=== PATIENT | female | born 1975 | race Caucasian/White ===

== ENCOUNTER 2023-12-15 16:25 | Inpatient (IN) ==
[~2023-12-15 16:25] MED LIST: ETOMIDATE 2 MG/ML 20 ML VIAL IV ONE; ROCURONIUM BROMIDE 10 MG/ML 5 ML VIAL IV ONE
[2023-12-15] MEDS: RAPID SEQUENCE INDUCTION BAG ONE (16:44)
[2023-12-15 16:47] LABS: iSTAT Hemoglobin 14.3 g/dl (12.0-16.0); iSTAT Ionized Calcium 1.09 mmol/l (1.12-1.32)
[2023-12-15] MEDS: propofoL 1,000 MG/100 ML VIAL IV SCH (16:49)
[2023-12-15 16:57] LABS: Appearance Urine Clear (Clear); Bilirubin Urine Negative (Negative); Blood Urine Negative (Negative); Color Urine Yellow; Glucose Urine UA Negative (Negative); Ketones Urine Negative (Negative); Leukocyte Esterase Urine Negative (Negative); Nitrite Urine Negative (Negative); Protein Urine Negative (Negative); Specific Gravity Urine 1.004 (1.000-1.030); Urobilinogen Urine Negative (Negative)
--- NOTE | 2023-12-15 16:59 | Emergency Department Note ---
Impression & Plan AMS (altered mental status), Alcohol intoxication, Respiratory failure ED Provider Note Provider: Jose Alonzo MD DATE OF SERVICE: 12/15/2023 CHIEF COMPLAINT: Overdose/altered mental status HISTORY OF PRESENT ILLNESS: Patient is a 48-year-old female reported history of anxiety presents with EMS for possible overdose and altered mental status. Patient was being assisted by filori who knocked on the ambulance alongside the road leaving the football game today needing assistance and was brought here as she is altered. Patient reportedly had some alcohol earlier and then took an unknown substance and has been altered. Patient nonverbal upon arrival with minimal belly breathing not responsive to painful stimuli. No history available from her. No obvious signs of trauma on quick exam or by EMS report. Additional history from patient's fianc after initial stabilization reports that patient did have 3-4 beers today but has a fairly good alcohol tolerance. He reports that she started to act a bit off around half-time and later told him that some other gentleman gave her a tablet of medication that she took around then that would make her fianc happy. He reports he is never seen her like this before. He has a sister and denies that he she has fallen. No other significant medical history besides anxiety related from the fianc. PAST MEDICAL HISTORY: As noted above MEDICATIONS: Reviewed home medications SOCIAL HISTORY: Did have alcohol today, has fianc who is present PHYSICAL EXAM: GENERAL: Unresponsive to verbal or painful stimuli on stretcher. Head: normocephalic and atraumatic EYES: Mild bilateral conjunctival injection without discharge or icterus. Pupils 6 mm bilaterally dilated. NECK: Trachea midline. Supple. ENT: Mucous membranes pink and moist. Pharynx without erythema or exudate. LUNGS: Airway patent. No retractions but minimal belly breathing. Bilateral breath sounds apparent. HEART: Regular tachycardic rate and rhythm. No chest wall tenderness ABDOMEN: Soft and non-tender, without guarding or rebound. SKIN: Acyanotic, warm, dry, without rashes EXTREMITIES: Without swelling, tenderness or deformity NEUROLOGICAL: Unresponsive to painful stimuli. EK bpm sinus tachycardia without PVC or PAC. No acute ST segment elevation with a QTc of [address] flattening. CONTINUOUS CARDIAC MONITORING: was ordered and showed a heart rate of 100s-150s bpm in sinus tachycardia Patient's laboratory studies and imaging reviewed. Differential includes toxicological/alcohol/drug-related, infection, hypoglycemia, electrolyte abnormalities, cardiac sources, trauma, neurologic, as well as other pathologies. IMPRESSION/MEDICAL DECISION MAKING: Patient upon arrival in room A1 unresponsive minimally breathing. Not hypoxic tachycardic. Pupils mildly dilated. Evidently took some kind of medication earlier in addition to alcohol. Given her altered mental status for airway protection patient was intubated with etomidate 20 mg and rocuronium 80 mg. This went uneventfully without desaturations. Postintubation chest x-ray obtained without evidence of pneumothorax or pneumonia with appropriate ET tube placement. Additional history from patient's fianc and no reported trauma. Will obtain head CT given the altered mental status however. Blood work sent including toxicology studies and a UDS. Patient not hypoglycemic. Blood work here with a negative COVID and urinalysis. Negative Tylenol and aspirin levels. No severe electrolyte abnormalities with normal renal function. No significant transaminitis noted or elevated CK. Not consistent with rhabdomyolysis at this time. Lipase normal doubt hepatitis or pancreatitis. hCG negative. CBC without significant leukocytosis or anemia. Did require propofol drip for sedation shortly after intubation as well as some Versed and soft restraints. Negative aspirin and Tylenol toxicology studies. Alcohol level is elevated at 330 the rest of the basic urine drug screen without finding. Patient did require some again fentanyl Versed and seems to be moderating some but given her significant alcohol intoxication feel that keeping her intubated until this process is through would be best. Updated fianc and discussed with the hospice further care here in the ICU. DIAGNOSIS: AMS, alcohol intoxication, acute respiratory failure DISPOSITION: Hospitalist will evaluate Patient was agreeable with this plan. Critical Care I have personally spent 41 minutes of critical care time in the direct management of this patient. This includes bedside care, interpretation of diagnostic studies, and testing, discussion with consultants, patient, and family members, and other required patient management activities. These 41 minutes is in excess of all separately billable procedures. ED Intubation performed by myself Indication airway protection, altered mental status. The patient was on 100% oxygen via NRB prior to the procedure. Suction, airway equipment, RSI drugs, respiratory equipment, and appropriate personnel were prepared prior to the initiation of the procedure. A time out was taken. Induction was performed with etomidate and rocuronium. After observing the clinical benefit of the medications, the airway was easily visualized utilizing a 3 glide scope. A 7.0 size ETT tube was placed atraumatically to 23 cm using standard technique. The cuff inflated without signs of malfunction. There were bilateral breath sounds, positive colormetric change, no gastric sounds, a good capnography waveform, and post procedure pulse oximetry was 100%. Post intubation sedation and paralysis was administered using propofol drip. There were no complications. 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 Beliefs That Will Affect Care: None Current Living Situation: Significant Other Assistive Devices: None Allergies Allergies Allergy/AdvReac Type Severity Reaction Status Date / Time No Known Allergies Allergy Unverified 12/15/23 18:06 Results & Data (ED) Vital Signs Vital Signs - 24 hr 12/15/23 16:26 12/15/23 16:33 12/15/23 16:41 Pulse Rate 138 H 114 H Pulse Rate [Right Finger] Pulse Rhythm [Right Finger] Respiratory Rate 6 L Respiratory Effort / Characteristics Respiratory Pattern Agonal Blood Pressure 123/93 Blood Pressure [Right Arm] Blood Pressure Mean 103 Blood Pressure Mean [Right Arm] Blood Pressure Position [Right Arm] Pulse Oximetry 100 100 Oxygen Delivery Method Ambu-Bag Oxygen Flow Rate Fraction of Inspired Oxygen SaO2/FiO2 Ratio Sepsis New/Unexplained Change in Mental Status Yes Sepsis Action Taken by Nursing No Action Required End-Tidal CO2 End Tidal CO2 (18-54mmHg) 12/15/23 16:45 12/15/23 16:52 12/15/23 16:55 Pulse Rate 101 H Pulse Rate [Right Finger] 97 H 102 H Pulse Rhythm [Right Finger] Respiratory Rate 16 16 16 Respiratory Effort / Characteristics Respiratory Pattern Blood Pressure Blood Pressure [Right Arm] 141/99 H 139/100 Blood Pressure Mean Blood Pressure Mean [Right Arm] 113 113 Blood Pressure Position [Right Arm] Pulse Oximetry 99 99 98 Oxygen Delivery Method Mechanical Vent Mechanical Vent Oxygen Flow Rate 16 Fraction of Inspired Oxygen 40 40 SaO2/FiO2 Ratio 247 Sepsis New/Unexplained Change in Mental Status Sepsis Action Taken by Nursing End-Tidal CO2 42 End Tidal CO2 (18-54mmHg) 47 12/15/23 17:26 12/15/23 17:30 12/15/23 17:39 Pulse Rate Pulse Rate [Right Finger] 120 H 106 H 107 H Pulse Rhythm [Right Finger] Respiratory Rate 12 21 17 Respiratory Effort / Characteristics Mechanically Ventilated Respiratory Pattern Blood Pressure Blood Pressure [Right Arm] 113/94 125/94 125/86 Blood Pressure Mean Blood Pressure Mean [Right Arm] 100 104 99 Blood Pressure Position [Right Arm] Pulse Oximetry 95 99 97 Oxygen Delivery Method Mechanical Vent Mechanical Vent Mechanical Vent Oxygen Flow Rate 20 Fraction of Inspired Oxygen 40 40 40 SaO2/FiO2 Ratio 237 247 242 Sepsis New/Unexplained Change in Mental Status Sepsis Action Taken by Nursing End-Tidal CO2 End Tidal CO2 (18-54mmHg) 59 52 49 12/15/23 17:46 12/15/23 17:48 12/15/23 17:52 Pulse Rate Pulse Rate [Right Finger] 106 H 102 H 110 H Pulse Rhythm [Right Finger] Respiratory Rate 18 21 18 Respiratory Effort / Characteristics Mechanically Ventilated Mechanically Ventilated Mechanically Ventilated Respiratory Pattern Blood Pressure Blood Pressure [Right Arm] 120/91 120/91 134/90 Blood Pressure Mean Blood Pressure Mean [Right Arm] 100 100 104 Blood Pressure Position [Right Arm] Pulse Oximetry 100 100 97 Oxygen Delivery Method Mechanical Vent Mechanical Vent Mechanical Vent Oxygen Flow Rate Fraction of Inspired Oxygen 40 40 40 SaO2/FiO2 Ratio 250 250 242 Sepsis New/Unexplained Change in Mental Status Sepsis Action Taken by Nursing End-Tidal CO2 End Tidal CO2 (18-54mmHg) 51 49 53 12/15/23 17:57 12/15/23 17:59 12/15/23 18:00 Pulse Rate Pulse Rate [Right Finger] 104 H 100 H Pulse Rhythm [Right Finger] Respiratory Rate 17 20 22 Respiratory Effort / Characteristics Mechanically Ventilated Respiratory Pattern Blood Pressure Blood Pressure [Right Arm] 128/75 128/75 Blood Pressure Mean Blood Pressure Mean [Right Arm] 92 92 Blood Pressure Position [Right Arm] Pulse Oximetry 95 100 Oxygen Delivery Method Mechanical Vent Mechanical Vent Oxygen Flow Rate Fraction of Inspired Oxygen 40 40 40 SaO2/FiO2 Ratio 237 250 Sepsis New/Unexplained Change in Mental Status Sepsis Action Taken by Nursing End-Tidal CO2 End Tidal CO2 (18-54mmHg) 52 49 12/15/23 18:04 12/15/23 18:08 12/15/23 18:12 Pulse Rate Pulse Rate [Right Finger] 102 H 85 82 Pulse Rhythm [Right Finger] Respiratory Rate 23 20 20 Respiratory Effort / Characteristics Mechanically Ventilated Respiratory Pattern Blood Pressure Blood Pressure [Right Arm] 107/88 113/71 100/66 Blood Pressure Mean Blood Pressure Mean [Right Arm] 94 85 77 Blood Pressure Position [Right Arm] Pulse Oximetry 100 100 99 Oxygen Delivery Method Mechanical Vent Mechanical Vent Mechanical Vent Oxygen Flow Rate Fraction of Inspired Oxygen 40 40 40 SaO2/FiO2 Ratio 250 250 247 Sepsis New/Unexplained Change in Mental Status Sepsis Action Taken by Nursing End-Tidal CO2 End Tidal CO2 (18-54mmHg) 49 47 46 12/15/23 18:15 12/15/23 18:20 12/15/23 18:25 Pulse Rate Pulse Rate [Right Finger] 80 82 80 Pulse Rhythm [Right Finger] Respiratory Rate 20 20 20 Respiratory Effort / Characteristics Mechanically Ventilated Mechanically Ventilated Respiratory Pattern Blood Pressure Blood Pressure [Right Arm] 93/68 L 107/68 108/69 Blood Pressure Mean Blood Pressure Mean [Right Arm] 76 81 82 Blood Pressure Position [Right Arm] Pulse Oximetry 99 100 100 Oxygen Delivery Method Mechanical Vent Mechanical Vent Mechanical Vent Oxygen Flow Rate Fraction of Inspired Oxygen 40 30 35 SaO2/FiO2 Ratio 247 333 285 Sepsis New/Unexplained Change in Mental Status Sepsis Action Taken by Nursing End-Tidal CO2 End Tidal CO2 (18-54mmHg) 45 45 44 12/15/23 18:37 12/15/23 18:41 12/15/23 18:46 Pulse Rate Pulse Rate [Right Finger] 82 90 74 Pulse Rhythm [Right Finger] Respiratory Rate 20 20 20 Respiratory Effort / Characteristics Mechanically Ventilated Mechanically Ventilated Respiratory Pattern Blood Pressure Blood Pressure [Right Arm] 124/84 129/81 109/72 Blood Pressure Mean Blood Pressure Mean [Right Arm] 97 97 84 Blood Pressure Position [Right Arm] Pulse Oximetry 100 99 Oxygen Delivery Method Mechanical Vent Mechanical Vent Mechanical Vent Oxygen Flow Rate Fraction of Inspired Oxygen 35 35 35 SaO2/FiO2 Ratio 285 282 Sepsis New/Unexplained Change in Mental Status Sepsis Action Taken by Nursing End-Tidal CO2 End Tidal CO2 (18-54mmHg) 48 48 45 12/15/23 19:18 12/15/23 19:30 12/15/23 20:00 Pulse Rate Pulse Rate [Right Finger] 82 73 74 Pulse Rhythm [Right Finger] Regular Respiratory Rate 20 20 24 Respiratory Effort / Characteristics Mechanically Ventilated Mechanically Ventilated Mechanically Ventilated Respiratory Pattern Blood Pressure Blood Pressure [Right Arm] 121/89 118/85 98/65 L Blood Pressure Mean Blood Pressure Mean [Right Arm] 99 96 76 Blood Pressure Position [Right Arm] Semi-fowlers Semi-fowlers Lying Pulse Oximetry 100 100 98 Oxygen Delivery Method Mechanical Vent Mechanical Vent Mechanical Vent Oxygen Flow Rate Fraction of Inspired Oxygen 30 30 SaO2/FiO2 Ratio 333 326 Sepsis New/Unexplained Change in Mental Status Sepsis Action Taken by Nursing End-Tidal CO2 End Tidal CO2 (18-54mmHg) 44 10 Laboratory Data 12/15/23 16:30 12/15/23 16:30 Lab Results 12/15/23 12/15/23 12/15/23 Range/Units 16:30 16:35 16:48 WBC 7.30 (4.8-10.8) K/ul RBC 4.47 (4.20-5.40) M/uL Hgb 15.1 (12.0-16.0) g/dl POC Hgb 14.3 (12.0-16.0) g/dl Hct 42.9 (37.0-47.0) % POC Hct 42 (37-47) % MCV 96.0 (80.0-100.0) fL MCH 33.8 (25.0-34.0) pg MCHC 35.2 (32.0-36.0) g/dL RDW Std Deviation 41.1 (36.4-46.3) fL RDW Coeff of Nika 11.8 (11.5-14.5) % Plt Count 155 (130-400) K/uL MPV 8.9 L (9.4-12.4) fL Immature Gran % (Auto) 0.3 % Neut % (Auto) 36.3 % Lymph % (Auto) 54.7 % Appling % (Auto) 7.3 % Eos % (Auto) 0.7 % Baso % (Auto) 0.7 % Neut # (Auto) 2.66 (1.40-6.50) K/uL Lymph # (Auto) 3.99 H (1.20-3.40) K/uL Appling # (Auto) 0.53 (0.11-0.59) K/uL Eos # (Auto) 0.05 (0.00-0.50) K/uL Baso # (Auto) 0.05 (0.00-0.20) K/uL Immature Gran # (Auto) 0.02 (0.01-0.20) K/uL PT 9.8 (9.0-12.0) Seconds INR 0.9 (0.9-1.1) Specimen Type POC pH (7.35-7.45) POC pCO2 (35-46) mmHg POC pO2 (80-95) mmHg POC HCO3 (19-24) howard/L POC Base Excess (-9-1.8) howard/L POC ABG O2 Sat (90-95) % POC Sodium 142 (135-144) mmol/L Sodium 142 (136-145) mmol/L POC Potassium 4.0 (3.3-5.0) mmol/L Potassium 4.0 (3.5-5.1) mmol/L POC Chloride 107 (101-112) mmol/L Chloride 107 (98-107) mmol/L Carbon Dioxide 24 (21-32) mmol/L POC Total CO2 23 L (24-31) mmol/L Anion Gap 11 (3-11) POC Anion Gap 17.0 (16-25) mmol/L POC BUN 15 (7-18) mg/dl BUN 15 (6-23) mg/dl Creatinine 0.60 (0.6-1.2) mg/dl POC Creatinine 1.0 (0.6-1.3) mg/dl Est Cr Clr Drug Dosing Not Reportable eGFR 112.04 BUN/Creatinine Ratio 25.0 H (10-20) Glucose 78 (70-99(Fasting)) mg/dl POC Glucose (other) 84 (70-99) mg/dl Osmolality 371 H* (280-300) mOsm/kg Calcium 9.1 (8.6-10.3) mg/dl POC Ioniz Calcium Shannon 1.09 L (1.12-1.32) mmol/l Magnesium 2.4 (1.7-2.4) mg/dl Total Bilirubin 0.4 (0.2-1.0) mg/dl AST 31 (13-39) U/L ALT 31 (7-52) U/L Alkaline Phosphatase 28 L (34-104) U/L Total Creatine Kinase 157 (26-192) U/L Troponin I High Sens 2.5 (0-14) pg/ml Total Protein 8.1 (6.0-8.3) gm/dl Albumin 4.7 (3.4-5.0) gm/dl Globulin 3.4 (2.5-4.0) gm/dl Albumin/Globulin Ratio 1.4 (0.9-2) Lipase 39 (11-82) U/L HCG, Qual Negative (Negative) Urine Color Yellow Urine Appearance Clear (Clear) Urine pH 5.0 (4.5-7.5) Ur Specific Koloa 1.004 (1.000-1.030) Urine Protein Negative (Negative) Urine Glucose (UA) Negative (Negative) Urine Ketones Negative (Negative) Urine Blood Negative (Negative) Urine Nitrite Negative (Negative) Urine Bilirubin Negative (Negative) Urine Urobilinogen Negative (Negative) Ur Leukocyte Esterase Negative (Negative) Salicylates < 3.0 L (3.0-30) mg/dl Urine Opiates Screen Neg (Neg) Ur Methadone, Qual Neg (Neg) Urine Fentanyl Screen Neg (Neg) Acetaminophen < 3 L (10-30) ug/ml Urine Barbiturates Neg (Neg) Ur Phencyclidine (PCP) Neg (Neg) U Amphetamin/Meth Scrn Neg (Neg) MDMA (Ecstasy) Screen Neg (Neg) U Benzodiazepines Scrn Neg (Neg) Ur Cocaine Metabolite Neg (Neg) U Marijuana (THC) Screen Neg (Neg) Ethyl Alcohol mg/dL (<10.0) mg/dl SARS-CoV-2, RNA, NAAT NEGATIVE (NEGATIVE) 12/15/23 12/15/23 Range/Units 16:49 19:52 WBC (4.8-10.8) K/ul RBC (4.20-5.40) M/uL Hgb (12.0-16.0) g/dl POC Hgb 12.9 (12.0-16.0) g/dl Hct (37.0-47.0) % POC Hct 38 (37-47) % MCV (80.0-100.0) fL MCH (25.0-34.0) pg MCHC (32.0-36.0) g/dL RDW Std Deviation (36.4-46.3) fL RDW Coeff of Nika (11.5-14.5) % Plt Count (130-400) K/uL MPV (9.4-12.4) fL Immature Gran % (Auto) % Neut % (Auto) % Lymph % (Auto) % Appling % (Auto) % Eos % (Auto) % Baso % (Auto) % Neut # (Auto) (1.40-6.50) K/uL Lymph # (Auto) (1.20-3.40) K/uL Appling # (Auto) (0.11-0.59) K/uL Eos # (Auto) (0.00-0.50) K/uL Baso # (Auto) (0.00-0.20) K/uL Immature Gran # (Auto) (0.01-0.20) K/uL PT (9.0-12.0) Seconds INR (0.9-1.1) Specimen Type Arterial POC pH 7.27 L (7.35-7.45) POC pCO2 47 H (35-46) mmHg POC pO2 121 H (80-95) mmHg POC HCO3 22 (19-24) howard/L POC Base Excess -5.0 (-9-1.8) howard/L POC ABG O2 Sat 98.0 H (90-95) % POC Sodium 142 (135-144) mmol/L Sodium (136-145) mmol/L POC Potassium 3.9 (3.3-5.0) mmol/L Potassium (3.5-5.1) mmol/L POC Chloride (101-112) mmol/L Chloride (98-107) mmol/L Carbon Dioxide (21-32) mmol/L POC Total CO2 23 L (24-31) mmol/L Anion Gap (3-11) POC Anion Gap (16-25) mmol/L POC BUN (7-18) mg/dl BUN (6-23) mg/dl Creatinine (0.6-1.2) mg/dl POC Creatinine (0.6-1.3) mg/dl Est Cr Clr Drug Dosing eGFR BUN/Creatinine Ratio (10-20) Glucose (70-99(Fasting)) mg/dl POC Glucose (other) (70-99) mg/dl Osmolality (280-300) mOsm/kg Calcium (8.6-10.3) mg/dl POC Ioniz Calcium Shannon (1.12-1.32) mmol/l Magnesium (1.7-2.4) mg/dl Total Bilirubin (0.2-1.0) mg/dl AST (13-39) U/L ALT (7-52) U/L Alkaline Phosphatase (34-104) U/L Total Creatine Kinase (26-192) U/L Troponin I High Sens (0-14) pg/ml Total Protein (6.0-8.3) gm/dl Albumin (3.4-5.0) gm/dl Globulin (2.5-4.0) gm/dl Albumin/Globulin Ratio (0.9-2) Lipase (11-82) U/L HCG, Qual (Negative) Urine Color Urine Appearance (Clear) Urine pH (4.5-7.5) Ur Specific Koloa (1.000-1.030) Urine Protein (Negative) Urine Glucose (UA) (Negative) Urine Ketones (Negative) Urine Blood (Negative) Urine Nitrite (Negative) Urine Bilirubin (Negative) Urine Urobilinogen (Negative) Ur Leukocyte Esterase (Negative) Salicylates (3.0-30) mg/dl Urine Opiates Screen (Neg) Ur Methadone, Qual (Neg) Urine Fentanyl Screen (Neg) Acetaminophen (10-30) ug/ml Urine Barbiturates (Neg) Ur Phencyclidine (PCP) (Neg) U Amphetamin/Meth Scrn (Neg) MDMA (Ecstasy) Screen (Neg) U Benzodiazepines Scrn (Neg) Ur Cocaine Metabolite (Neg) U Marijuana (THC) Screen (Neg) Ethyl Alcohol mg/dL 330.7 H (<10.0) mg/dl SARS-CoV-2, RNA, NAAT (NEGATIVE) Administered Medications Fentanyl Citrate (Fentanyl Citrate Pf 100 Mcg/2 Ml Vial) 100 mcg IV Q15M PRN PRN Reason: Pain Stop: 12/29/23 18:37 Last Admin: 12/15/23 18:42 Dose: 100 mcg Documented By: NRB Propofol (Diprivan) 1,000 mg in 100 mls @ 20.25 mls/hr IV .Q4H57M [facility]; Protocol Stop: 12/18/23 16:44 Last Titration: 12/15/23 20:21 Dose: 45 mcg/kg/min, 20.3 mls/hr Documented By: Admin: 12/15/23 20:10 Dose: 50 mcg/kg/min, 22.5 mls/hr Documented By: RODERICK Co-signed By: LUL Titration: 12/15/23 20:10 Dose: Infused Documented By: RODERICK Co-signed By: LUL Titration: 12/15/23 17:54 Dose: 50 mcg/kg/min, 22.5 mls/hr Documented By: Titration: 12/15/23 17:40 Dose: 40 mcg/kg/min, 18 mls/hr Documented By: Titration: 12/15/23 17:17 Dose: 30 mcg/kg/min, 13.5 mls/hr Documented By: Titration: 12/15/23 17:01 Dose: 25.11 mcg/kg/min, 11.3 mls/hr Documented By: Admin: 12/15/23 16:49 Dose: 20 mcg/kg/min, 9 mls/hr Documented By: NRB Co-signed By: MICHELLE Fentanyl Citrate (Fentanyl Citrate) 2,500 mcg in 250 mls @ 2.5 mls/hr IV .Q96H [facility]; Protocol Stop: 12/29/23 21:14 Last Admin: 12/15/23 21:14 Dose: 25 mcg/hr, 2.5 mls/hr Documented By: MARV Co-signed By: SAMMY Miscellaneous (Icu Protocol For Hyperglycemia) 1 each N/A ACHS [facility] Stop: 12/17/23 21:04 Last Admin: 12/15/23 22:14 Dose: Not Given Documented By: [id number] Propofol (Propofol Bolus From Bag) 20 mg IV Q5M PRN PRN Reason: Sedation Stop: 12/18/23 16:37 Last Admin: 12/15/23 19:24 Dose: 20 mg Documented By: RODERICK Co-signed By: ROBERT Admin: 12/15/23 18:39 Dose: 20 mg Documented By: NRB Co-signed By: GABY Admin: 12/15/23 17:58 Dose: 20 mg Documented By: NRB Co-signed By: ERICK Admin: 12/15/23 17:20 Dose: 20 mg Documented By: NRB Co-signed By: EPHRAIM Admin: 12/15/23 17:12 Dose: 20 mg Documented By: NRB Co-signed By: EPHRAIM Admin: 12/15/23 17:07 Dose: 20 mg Documented By: NRB Co-signed By: EPHRAIM Admin: 12/15/23 17:02 Dose: 20 mg Documented By: KAYLAH Co-signed By: GABY Discontinued Medications Fentanyl Citrate (Fentanyl Citrate Pf 100 Mcg/2 Ml Vial) 100 mcg IV NOW STA Stop: 12/15/23 18:04 Last Admin: 12/15/23 18:05 Dose: 100 mcg Documented By: KAYLAH Fentanyl Citrate (Fentanyl Citrate Pf 100 Mcg/2 Ml Vial) 100 mcg IV NOW STA Stop: 12/15/23 19:41 Last Admin: 12/15/23 19:45 Dose: 100 mcg Documented By: RODERICK Fentanyl Citrate (Fentanyl Citrate 2,500 Mcg/250 Ml Bag) Confirm Administered Dose 2,500 mcg IV .STK-MED ONE Stop: 12/15/23 21:00 Last Admin: 12/15/23 21:19 Dose: Not Given Documented By: MARV Sodium Chloride (Nss) 1,000 mls @ 999 mls/hr IV .Q1H1M ONE Stop: 12/15/23 17:57 Last Infusion: 12/15/23 18:35 Dose: Infused Documented By: Admin: 12/15/23 17:34 Dose: 999 mls/hr Documented By: KAYLAH Midazolam HCl (Midazolam Hcl 1 Mg/Ml 2ml Vial) 2.5 mg IV NOW STA Stop: 12/15/23 17:24 Last Admin: 12/15/23 18:44 Dose: Not Given Documented By: KAYLAH Midazolam HCl (Midazolam Hcl 5 Mg/Ml 2ml Vial) Confirm Administered Dose 10 mg .ROUTE .STK-MED ONE Stop: 12/15/23 17:25 Last Increment: 12/15/23 17:33 Dose: 2.5 mg Documented By: KAYLAH Increment: 12/15/23 17:26 Dose: 2.5 mg Documented By: KAYLAH Midazolam HCl (Midazolam Hcl 1 Mg/Ml 2ml Vial) 2.5 mg IV NOW STA Stop: 12/15/23 17:34 Last Admin: 12/15/23 18:44 Dose: Not Given Documented By: KAYLAH Midazolam HCl (Midazolam Hcl 5 Mg/Ml 1 Ml Vial) 5 mg IV NOW STA Stop: 12/15/23 17:40 Last Admin: 12/15/23 17:45 Dose: 5 mg Documented By: KAYLAH Midazolam HCl (Midazolam Hcl 5 Mg/Ml 2ml Vial) Confirm Administered Dose 10 mg .ROUTE .STK-MED ONE Stop: 12/15/23 17:50 Last Admin: 12/15/23 18:59 Dose: 1 mg Documented By: KAYLAH Midazolam HCl (Midazolam Hcl 5 Mg/Ml 1 Ml Vial) 5 mg IV NOW STA Stop: 12/15/23 19:41 Last Admin: 12/15/23 21:11 Dose: Not Given Documented By: RODERICK Midazolam HCl (Midazolam Hcl 5 Mg/Ml 2ml Vial) Confirm Administered Dose 10 mg .ROUTE .STK-MED ONE Stop: 12/15/23 19:49 Last Admin: 12/15/23 19:57 Dose: Not Given Documented By: RODERICK Miscellaneous (Rapid Sequence Induction Bag) Confirm Administered Dose 1 each N/A .STK-MED ONE Stop: 12/15/23 16:31 Last Admin: 12/15/23 16:44 Dose: 1 each Documented By: KAYLAH Riosaneous (Stat Iv Infusion Titration Per Protocol) 1 each N/A NOW STA Stop: 12/15/23 16:39 Last Admin: 12/15/23 17:00 Dose: 1 each Documented By: KAYLAH Serrato Information (Patient's Allergy Info Needs Entered) 1 each N/A Q30M [facility] Stop: 01/14/24 16:59 Last Admin: 12/15/23 19:50 Dose: Not Given Documented By: Admin: 12/15/23 19:06 Dose: Not Given Documented By: RODERICK Imaging Data Radiologist's Impression: Chest X-Ray 12/15/23 16:37 Chest radiograph, one view History: Chest pain Comparison: None Findings: Single AP view of the chest performed. No focal consolidation or pleural effusion. No pneumothorax. Endotracheal tube tip is approximately 2.8 cm above the nani. The cardiomediastinal silhouette is within normal limits. Normal pulmonary vascularity. No evidence for lymphadenopathy. No visualized bony or soft tissue abnormality. Impression: ET tube as above Electronically signed by Pio Alfaro 12-15-2023 7:[address] 12/15/23 16:38 EXAM: CT Head Without Intravenous Contrast INDICATION: Altered mental status. TECHNIQUE: Axial computed tomography images of the head/brain without intravenous contrast. Sagittal and/or coronal reformats are provided. Sagittal and coronal reformatted images were created and reviewed. This CT exam was performed using one or more of the following dose reduction techniques: automated exposure control, adjustment of the mA and/or kV according to patient size, and/or use of iterative reconstruction technique. COMPARISON: No relevant prior studies available. FINDINGS: Limitations: None. Brain and extra-axial spaces: No abnormality noted. No hemorrhage. No significant white matter disease. No edema. No ventriculomegaly. Bones/joints: No acute changes. Soft tissues: No significant abnormality noted. Vasculature: No acute abnormality noted. Sinuses: No layering fluid in the visualized portions of the paranasal sinuses. Mastoid air cells: No mastoid effusion. Orbits: No significant abnormality noted. IMPRESSION: No abnormality noted. ACT 112: Negative or not required by law. Electronically signed by Kae Gallegos 12-15-2023 6:37 PM Discharge Plan Visit Data Chief Complaint: Overdose (Accidental) ED Provider: Jose Alonzo Discharge Problem: AMS (altered mental status), Alcohol intoxication, Respiratory failure Patient Disposition: Admitted As Inpatient Discharge Instructions Interventions: ED Discharge Assessment Last Done: 12/15/23 20:33 Discharge Problem: AMS (altered mental status) Qualifiers: Altered mental status type: stupor Qualified Code(s): R40.1 - Stupor Alcohol intoxication Qualifiers: Complication of substance-induced condition: with unspecified complication Q ualified Code(s): F10.929 - Alcohol use, unspecified with intoxication, unspecified Respiratory failure Qualifiers: Chronicity: acute Respiratory failure complication: unspecified whether with hypoxia or hypercapnia Qualified Code(s): J96.00 - Acute respiratory failure, unspecified whether with hypoxia or hypercapnia
[2023-12-15] MEDS: STAT IV Infusion **Titration per Protocol STA (17:00)
[2023-12-15] MEDS: PROPOFOL BOLUS FROM BAG IV PRN (17:02)
[2023-12-15 17:08] LABS: Alanine Aminotransferase 31 U/L (7-52); Albumin Globulin Ratio 1.4 (0.9-2); Albumin Level 4.7 gm/dl (3.4-5.0); Alkaline Phosphatase 28 U/L (34-104); Anion Gap 11 (3-11); Aspartate Aminotransferase 31 U/L (13-39); Bilirubin,Total 0.4 mg/dl (0.2-1.0); Blood Urea Nitrogen 15 mg/dl (6-23); Calcium 9.1 mg/dl (8.6-10.3); Carbon Dioxide 24 mmol/L (21-32); Chloride 107 mmol/L (98-107); Creatine Kinase 157 U/L (26-192); Globulin 3.4 gm/dl (2.5-4.0); Glucose 78 mg/dl (70-99(Fasting)); Lipase 39 U/L (11-82); Magnesium 2.4 mg/dl (1.7-2.4); Pregnancy Test, Serum Negative (Negative); Sodium 142 mmol/L (136-145); Total Protein 8.1 gm/dl (6.0-8.3)
[2023-12-15 17:09] LABS: Acetaminophen < 3 ug/ml (10-30); Salicylate < 3.0 mg/dl (3.0-30)
[2023-12-15 17:15] LABS: Troponin I High Sensitivity 2.5 pg/ml (0-14)
[2023-12-15 17:17] LABS: INR 0.9 (0.9-1.1); Prothrombin Time 9.8 Seconds (9.0-12.0)
[2023-12-15 17:22] LABS: Basophils # (auto) 0.05 K/uL (0.00-0.20); Basophils % (auto) 0.7 %; Eosinophils # (auto) 0.05 K/uL (0.00-0.50); Eosinophils % (auto) 0.7 %; Hematocrit (blood only) 42.9 % (37.0-47.0); Hemoglobin 15.1 g/dl (12.0-16.0); Immature Granulocytes # (auto) 0.02 K/uL (0.01-0.20); Immature Granulocytes % (auto) 0.3 %; Lymphocytes # (auto) 3.99 K/uL (1.20-3.40); Lymphocytes % (auto) 54.7 %; Mean Corpuscular Hemoglobin 33.8 pg (25.0-34.0); Mean Corpuscular Hgb Conc 35.2 g/dL (32.0-36.0); Mean Platelet Volume 8.9 fL (9.4-12.4); Monocytes # (auto) 0.53 K/uL (0.11-0.59); Monocytes % (auto) 7.3 %; Neutrophils # (auto) 2.66 K/uL (1.40-6.50); Neutrophils % (auto) 36.3 %; Platelet Count 155 K/uL (130-400); RDW Coefficient of Variation 11.8 % (11.5-14.5); RDW Standard Deviation 41.1 fL (36.4-46.3); Red Blood Count 4.47 M/uL (4.20-5.40)
[2023-12-15] MEDS: MIDAZOLAM HCL 5 MG/ML 2ML VIAL ONE ×3 (17:26→19:57)
[2023-12-15] MEDS: SODIUM CHLORIDE 0.9% 1,000 ML IV ONE (17:34)
[2023-12-15 17:43] LABS: Amphetamines+Metham, Urine Neg (Neg); Barbiturates, Urine Neg (Neg); Benzodiazepine, Urine Neg (Neg); Cocaine, Urine Neg (Neg); Fentanyl, Urine Neg (Neg); MDMA (Ecstacy), Urine Neg (Neg); Marijuana, Urine Neg (Neg); Methadone, Urine Neg (Neg); Opiate, Urine Neg (Neg); Phencyclidine, Urine Neg (Neg)
[2023-12-15] MEDS: MIDAZOLAM HCL 5 MG/ML 1 ML VIAL IV STA ×2 (17:45→21:11)
[2023-12-15] MEDS: fentaNYL citrate PF 100 MCG/2 ML VIAL IV STA ×2 (18:05→19:45)
--- NOTE | 2023-12-15 18:38 | CT Scan Report ---
EXAM: CT Head Without Intravenous Contrast INDICATION: Altered mental status. TECHNIQUE: Axial computed tomography images of the head/brain without intravenous contrast. Sagittal and/or coronal reformats are provided. Sagittal and coronal reformatted images were created and reviewed. This CT exam was performed using one or more of the following dose reduction techniques: automated exposure control, adjustment of the mA and/or kV according to patient size, and/or use of iterative reconstruction technique. COMPARISON: No relevant prior studies available. FINDINGS: Limitations: None. Brain and extra-axial spaces: No abnormality noted. No hemorrhage. No significant white matter disease. No edema. No ventriculomegaly. Bones/joints: No acute changes. Soft tissues: No significant abnormality noted. Vasculature: No acute abnormality noted. Sinuses: No layering fluid in the visualized portions of the paranasal sinuses. Mastoid air cells: No mastoid effusion. Orbits: No significant abnormality noted. IMPRESSION: No abnormality noted. ACT 112: Negative or not required by law. Electronically signed by Kae Gallegos 12-15-2023 6:37 PM
[2023-12-15] MEDS: fentaNYL citrate PF 100 MCG/2 ML VIAL IV PRN (18:42)
[2023-12-15] MEDS: MIDAZOLAM HCL 1 MG/ML 2ML VIAL IV STA ×2 (18:44)
[2023-12-15] MEDS: Patient's ALLERGY Info needs ENTERED SCH (19:06)
--- NOTE | 2023-12-15 19:15 | XRay Report ---
Chest radiograph, one view History: Chest pain Comparison: None Findings: Single AP view of the chest performed. No focal consolidation or pleural effusion. No pneumothorax. Endotracheal tube tip is approximately 2.8 cm above the nani. The cardiomediastinal silhouette is within normal limits. Normal pulmonary vascularity. No evidence for lymphadenopathy. No visualized bony or soft tissue abnormality. Impression: ET tube as above Electronically signed by Pio Alfaro 12-15-2023 7:15 PM
[2023-12-15 20:09] LABS: iSTAT Arterial Blood Gas HCO3 22 meg/L (19-24); iSTAT Arterial Blood Gas pCO2 47 mmHg (35-46); iSTAT Arterial Blood Gas pH 7.27 (7.35-7.45); iSTAT Arterial Blood Gas pO2 121 mmHg (80-95); iSTAT Carbon Dioxide 23 mmol/L (24-31); iSTAT Hematocrit 38 % (37-47); iSTAT Hemoglobin 12.9 g/dl (12.0-16.0); iSTAT Potassium 3.9 mmol/L (3.3-5.0); iSTAT Sample Type Arterial; iSTAT Sodium 142 mmol/L (135-144)
--- NOTE | 2023-12-15 20:20 | History & Physical Report ---
Date of Service December 15, 2023 Assessment & Plan (1) AMS (altered mental status): (2) Respiratory failure: (3) Alcohol intoxication: Plan: 48-year-old female with no known past medical history, presenting with all mental status, following an unknown substance ingestion. Altered mental status, respiratory failure Alcohol ingestion Other unknown substance ingestion CT head: No acute process Urine drug screen: Unremarkable Alcohol level: 300s LFTs: Normal EKG: QT corrected 480s, QRS 76 Intubated at the ER for airway protection in the setting of altered mental status, unarousable, [facility] contacted, spoke with pharmacist Michaela Recommend comprehensive urine drug screen-discussed with laboratory miller Jana, will send for extended drug screen care of [facility], please follow-up results Also recommended to perform serial EKGs, 10 PM and 4 AM, monitor QRS and QTc, call poison control center if QRS is more than 120, QT corrected more than 500 Continue supportive care for now Check labs in a.m. Requested patient's significant other to bring patient's medication for anxiety/hot flashes for confirmation DVT prophylaxis SCDs CODE STATUS Full code Disposition Lives with significant other at home, [facility] plan of care discussed with patient's significant other in detail and at length all questions answered he is understanding, agreeable, comfortable with the plan of care History of Present Illness Chief Complaint: altered mental status Primary Care Provider: NO PCP History obtained from patient's significant other, David, at the bedside, as patient was sedated, intubated. According to David, patient at baseline is healthy, exercises frequently, does not have significant past medical history, and only takes a medication for hot flashes/anxiety. He said patient has been healthy for the past few days, no symptoms at all. They traveled from their home in [place] to [place] today for the football game. Coming into the game, patient was at her baseline, awake, alert, with no symptoms. They were having 2 to 3 cans of beer according to her significant other. During half time, the patient went to the bathroom, and upon returning, patient's partner noticed that she is significantly different-confused, weak, appears " severely drunk". Apparently, she reported to him that somebody in the bathroom gave her something to ingest, " which would make her happy". At the end of the game, patient became progressively confused, weak, to the point that she could not ambulate. Her partner had to assist her to exit the stadium. While walking, patient's significant other was able to seek help from the ambulance crew. When she was brought inside the ambulance, the patient was completely out of it as per her significant other. At the ER, patient's BP 123/93, heart rate 138, respiratory rate 6, 100% on Ambu bag. She was unarousable. Patient immediately intubated for airway protection. EKG showing sinus tachycardia 110 Urine drug screen negative, alcohol level 300s CT head: No acute process Chest x-ray: No acute process On exam, patient seen sedated on propofol, not in distress, no accessory muscle use. Allergies Allergy/AdvReac Type Severity Reaction Status Date / Time No Known Allergies Allergy Unverified 12/15/23 18:06 Past Med/Surg History Problem List (Updated 12/15/23 @ 18:07 by Jose Alonzo M.D.) Respiratory failure (Acute) Alcohol intoxication (Acute) AMS (altered mental status) (Acute) Social History Smoking Status: Unknown if ever smoked Review of Systems Review of Systems: all noted and negative except for above Physical Exam Physical Exam: General- Sedated, intubated, no Accessory muscle use Head- atraumatic Eyes- PERRL, EOMI, anicteric ENT- oropharynx clear Neck- supple, no JVD, no adenopathy, no thyromegaly; carotids +2/2, no bruits appreciated Lungs- clear to auscultation bilaterally, no rales/wheezes Heart- normal rate, regular rhythm; no murmur, no gallop, no rub appreciated Abdomen- normal bowel sounds, nondistended, soft, nontender, no masses or hepatosplenomegaly Extremities- no pretibial edema, no calf tenderness; peripheral pulses intact Neuro- sedated, intubated Skin- warm & dry Results & Data Results & Data Vital Signs (Past 12 Hours) Vital Signs Pulse Pulse Resp BP BP Pulse Ox O2 Del Method 12/15/23 20:12 72 24 98 12/15/23 20:00 74 24 98/65 L 98 Mechanical Vent 12/15/23 19:30 73 20 118/85 100 Mechanical Vent 12/15/23 19:18 82 20 121/89 100 Mechanical Vent 12/15/23 18:46 74 20 109/72 99 Mechanical Vent 12/15/23 18:41 90 20 129/81 Mechanical Vent 12/15/23 18:37 82 20 124/84 100 Mechanical Vent 12/15/23 18:25 80 20 108/69 100 Mechanical Vent 12/15/23 18:20 82 20 107/68 100 Mechanical Vent 12/15/23 18:15 80 20 93/68 L 99 Mechanical Vent 12/15/23 18:12 82 20 100/66 99 Mechanical Vent 12/15/23 18:08 85 20 113/71 100 Mechanical Vent 12/15/23 18:04 102 H 23 107/88 100 Mechanical Vent 12/15/23 18:00 100 H 22 128/75 100 Mechanical Vent 12/15/23 17:59 20 12/15/23 17:57 104 H 17 128/75 95 Mechanical Vent 12/15/23 17:52 110 H 18 134/90 97 Mechanical Vent 12/15/23 17:48 102 H 21 120/91 100 Mechanical Vent 12/15/23 17:46 106 H 18 120/91 100 Mechanical Vent 12/15/23 17:39 107 H 17 125/86 97 Mechanical Vent 12/15/23 17:30 106 H 21 125/94 99 Mechanical Vent 12/15/23 17:26 120 H 12 113/94 95 Mechanical Vent 12/15/23 16:55 101 H 16 98 12/15/23 16:52 102 H 16 139/100 99 Mechanical Vent 12/15/23 16:45 97 H 16 141/99 H 99 Mechanical Vent 12/15/23 16:41 114 H 12/15/23 16:33 100 12/15/23 16:26 138 H 6 L 123/93 100 Ambu-Bag O2 Flow Rate FiO2 12/15/23 20:12 30 12/15/23 20:00 30 12/15/23 19:30 12/15/23 19:18 30 12/15/23 18:46 35 12/15/23 18:41 35 12/15/23 18:37 35 12/15/23 18:25 35 12/15/23 18:20 30 12/15/23 18:15 40 12/15/23 18:12 40 12/15/23 18:08 40 12/15/23 18:04 40 12/15/23 18:00 40 12/15/23 17:59 40 12/15/23 17:57 40 12/15/23 17:52 40 12/15/23 17:48 40 12/15/23 17:46 40 12/15/23 17:39 40 12/15/23 17:30 20 40 12/15/23 17:26 40 12/15/23 16:55 40 12/15/23 16:52 16 40 12/15/23 16:45 12/15/23 16:41 12/15/23 16:33 12/15/23 16:26 Laboratory Results all noted and reviewed including below Code Status & VTE Plan VTE Prophylaxis Plan VTE Prophylaxis will be ordered: Yes (1) AMS (altered mental status) Altered mental status type: stupor Qualified Code(s): R40.1 - Stupor (2) Respiratory failure Chronicity: acute Respiratory failure complication: unspecified whether with hypoxia or hypercapnia Qualified Code(s): J96.00 - Acute respiratory failure, unspecified whether with hypoxia or hypercapnia (3) Alcohol intoxication Complication of substance-induced condition: with unspecified complication Qualified Code(s): F10.929 - Alcohol use, unspecified with intoxication, unspecified
[2023-12-15] MEDS ORDERED: STAT IV Infusion **Titration per Protocol STA (21:01)
[2023-12-15] MEDS ORDERED: fentaNYL BOLUS from BAG IV PRN (21:01)
[2023-12-15] MEDS: fentaNYL citrate 2,500 MCG/250 ML BAG IV SCH (21:14)
[2023-12-15] MEDS: fentaNYL citrate 2,500 MCG/250 ML BAG IV ONE (21:19)
[2023-12-15] MEDS: ICU Protocol for HYPERglycemia SCH (22:14)
--- NOTE | 2023-12-15 23:50 | Critical Care Consultation ---
Date of Consultation December 15, 2023 Assessment & Plan (1) Alcohol intoxication: Reason Critically Ill: 48-year-old female presents to the ICU following emergent intubation in the emergency department where she was found to be obtunded following alcohol ingestion and possibly drug ingestion earlier this afternoon. She remains mechanically ventilated for airway protection Neuro - Alcohol intoxication/AMSfianc states that patient had 3-4 beers, and ingested unknown substance from a stranger - EtOH 330 on admission. Suspect this is primary calls of AMS - UDS unremarkable. Acetaminophen and salicylates negative - Toxicology consulted and recommended every 6 hour EKGs to assess QRS interval, brought in drug screen which is currently pending as reference lab, and continuation with supportive care -CT head negative for acute intracranial findings - Continue supportive care with management ICU. Currently on propofol drip. Once able to follow commands will likely be extubated Cardiac - No history of cardiac disease. Currently normal sinus rhythm on monitor. EKG with normal QRS and QTc intervals. Continue monitor on telemetry for now Respiratory - Mechanically ventilatedno previous history of pulmonary disease. Patient was intubated emergently to protect airway due to altered mental status - Chest x-ray unconcerning for pulmonary disease process. Will repeat chest x-ray in a.m. - Follow-up repeat ABG. Adjust vent settings as tolerated - Continuous end-tidal CO2 and pulse ox monitoring GI - N.p.o. RENAL/LYTES - Creatinine within normal limits. No electrolyte abnormalities. Monitor routine BMPs - Foleystrict I's and O's ENDO - No history of diabetes or thyroid disease. ICU hyperglycemic protocol HEME - H&H stable, monitor routine CBC ID - No indication for best process at this time LINES/IV ACCESS - Peripheral IVs DVT PROPHYLAXIS - SCDs I have personally spent 42 minutes of critical care time in the direct management of this patient. This is a life/limb threatening event. This includes time spent evaluating patient, direct bedside care, chart review, placing orders, interpretation of diagnostic studies, discussion with consultants, patient, and family members, as well as other required patient management activities. This time is exclusive of all separately billable procedures, and teaching time and separate from and in addition to any other critical care service time. Thank you for allowing us to participate in the care of this patient. Please refer to my attending physician's documentation for any further recommendations. (2) AMS (altered mental status): (3) Respiratory failure: Supervising Physician Co-Signing Physician Notes Patient seen and examined. EMR reviewed. Discussed with critical care RHIANNON. Agree with assessment plan as noted. Please refer to my progress note from 12/16/2023 for additional details History of Present Illness Attending Physician: Brenden Silva MD History of Present Illness Patient is a 48-year-old female with past medical history of anxiety disorder that presented to the emergency department earlier this afternoon with altered mental status. Per report, patient had been to a football game earlier this afternoon and after going to the bathroom, was witnessed by her fianc to have significant change in mental status. Abram stated that she had stated that she had taken a pill from a stranger but he did not know what it was. He reported that she had drank 3-4 beers earlier today. On arrival to the emergency department the patient was noted to be altered mental status and was emergently intubated for airway security. UDS was negative and acetaminophen and salicylate s were also negative, however she did have a EtOH level of 330. She was taken for CT head which was negative for acute intracranial findings. Poison control was contacted And recommended to 6-hour EKGs to evaluate QRS and comprehensive drug screening which has been sent. Otherwise, continue with supportive care. Patient admitted to ICU for further management at this time. Allergies Allergy/AdvReac Type Severity Reaction Status Date / Time No Known Allergies Allergy Unverified 12/15/23 18:06 Patient History Social History Smoking Status: Unknown if ever smoked Hx Alcohol Use: Yes Alcohol type: beer Hx Substance Use: Yes Last Used Substance: Hours (ago) Preferred Language: Japanese Communication Ability: Effective Borematic Machine Operator Required: No Beliefs That Will Affect Care: None Current Living Situation: Significant Other Assistive Devices: None Review of Systems Review of Systems: Unobtainable due to endotracheal tube Physical Exam Constitutional: + mechanically ventilated; no acute dist ress Eyes: PERRL, conjunctivae normal, anicteric sclerae ENMT: external ear and nose normal, oropharynx normal Neck: trachea midline, no thyromegaly Respiratory: normal respiratory effort, lungs clear to auscultation Cardiovascular: RRR, no murmur, no edema Heart Sounds: normal S1 and normal S2; no murmur Extremities: no edema Gastrointestinal (Abdomen): normal bowel sounds, soft, nontender, no hepatosplenomegaly Musculoskeletal: no cyanosis or clubbing, extremities motor strength 5/5 Skin: no rashes, warm and dry Neurologic: Exam limited due to sedation. PERRLA, cough gag corneal intact Psychiatric: Unable to assess due to sedation Genitourinary: Indwelling Philippe catheter present, urine yellow clear Results & Data Results & Data Vital Signs (Past 12 Hours) Vital Signs Temp Pulse Pulse Resp BP BP BP 12/15/23 22:06 36.6 C 72 24 12/15/23 21:36 36.7 C 74 24 12/15/23 21:00 125/83 12/15/23 21:00 125/83 12/15/23 21:00 36.5 C 78 24 12/15/23 21:00 36.5 C 82 24 125/83 12/15/23 20:33 77 24 104/67 12/15/23 20:24 74 24 100/70 12/15/23 20:12 72 24 12/15/23 20:00 74 24 98/65 L 12/15/23 19:30 73 20 118/85 12/15/23 19:18 82 20 121/89 12/15/23 18:46 74 20 109/72 12/15/23 18:41 90 20 129/81 12/15/23 18:37 82 20 124/84 12/15/23 18:25 80 20 108/69 12/15/23 18:20 82 20 107/68 12/15/23 18:15 80 20 93/68 L 12/15/23 18:12 82 20 100/66 12/15/23 18:08 85 20 113/71 12/15/23 18:04 102 H 23 107/88 12/15/23 18:00 100 H 22 128/75 12/15/23 17:59 20 12/15/23 17:57 104 H 17 128/75 12/15/23 17:52 110 H 18 134/90 12/15/23 17:48 102 H 21 120/91 12/15/23 17:46 106 H 18 120/91 12/15/23 17:39 107 H 17 125/86 12/15/23 17:30 106 H 21 125/94 12/15/23 17:26 120 H 12 113/94 12/15/23 16:55 101 H 16 12/15/23 16:52 102 H 16 139/100 12/15/23 16:45 97 H 16 141/99 H 12/15/23 16:41 114 H 12/15/23 16:33 12/15/23 16:26 138 H 6 L 123/93 Pulse Ox O2 Del Method O2 Flow Rate FiO2 12/15/23 22:06 99 Mechanical Vent 30 12/15/23 21:36 98 Mechanical Vent 30 12/15/23 21:00 12/15/23 21:00 12/15/23 21:00 100 Mechanical Vent 30 12/15/23 21:00 100 Mechanical Vent 30 12/15/23 20:33 98 Mechanical Vent 30 12/15/23 20:24 98 Mechanical Vent 30 12/15/23 20:12 98 30 12/15/23 20:00 98 Mechanical Vent 30 12/15/23 19:30 100 Mechanical Vent 12/15/23 19:18 100 Mechanical Vent 30 12/15/23 18:46 99 Mechanical Vent 35 12/15/23 18:41 Mechanical Vent 35 12/15/23 18:37 100 Mechanical Vent 35 12/15/23 18:25 100 Mechanical Vent 35 12/15/23 18:20 100 Mechanical Vent 30 12/15/23 18:15 99 Mechanical Vent 40 12/15/23 18:12 99 Mechanical Vent 40 12/15/23 18:08 100 Mechanical Vent 40 12/15/23 18:04 100 Mechanical Vent 40 12/15/23 18:00 100 Mechanical Vent 40 12/15/23 17:59 40 12/15/23 17:57 95 Mechanical Vent 40 12/15/23 17:52 97 Mechanical Vent 40 12/15/23 17:48 100 Mechanical Vent 40 12/15/23 17:46 100 Mechanical Vent 40 12/15/23 17:39 97 Mechanical Vent 40 12/15/23 17:30 99 Mechanical Vent 20 40 12/15/23 17:26 95 Mechanical Vent 40 12/15/23 16:55 98 40 12/15/23 16:52 99 Mechanical Vent 16 40 12/15/23 16:45 99 Mechanical Vent 12/15/23 16:41 12/15/23 16:33 100 12/15/23 16:26 100 Ambu-Bag Coding Level of Care Code 28469 CRITICAL CARE 1ST 30-74M Diagnoses Alcohol intoxication F10.929 Complication of substance-induced condition: with unspecified complication AMS (altered mental status) R40.1 Altered mental status type: stupor Respiratory failure J96.00 Chronicity: acute Respiratory failure complication: unspecified whether with hypoxia or hypercapnia (1) Alcohol intoxication Complication of substance-induced condition: with unspecified complication Qualified Code(s): F10.929 - Alcohol use, unspecified with intoxication, unspecified (2) AMS (altered mental status) Altered mental status type: stupor Qualified Code(s): R40.1 - Stupor (3) Respiratory failure Chronicity: acute Respiratory failure complication: unspecified whether with hypoxia or hypercapnia Qualified Code(s): J96.00 - Acute respiratory failure, unspecified whether with hypoxia or hypercapnia
[2023-12-16] MEDS: PLASMA-LYTE A 1,000 ML IV ONE (01:35)
[2023-12-16 04:28] LABS: iSTAT Allen Test Pass; iSTAT Art Bld Gas pCO2 Correct 29 mmHg (35-46); iSTAT Art Bld Gas pH Corrected 7.466 (7.35-7.45); iSTAT Arterial Blood Gas HCO3 21 meg/L (19-24); iSTAT Arterial Blood Gas pCO2 28 mmHg (35-46); iSTAT Arterial Blood Gas pH 7.48 (7.35-7.45); iSTAT Arterial Blood Gas pO2 82 mmHg (80-95); iSTAT Arterial Blood Gas pO2 C 87; iSTAT Carbon Dioxide 22 mmol/L (24-31); iSTAT FiO2 28 %; iSTAT Hematocrit 33 % (37-47); iSTAT Hemoglobin 11.2 g/dl (12.0-16.0); iSTAT Potassium 3.3 mmol/L (3.3-5.0); iSTAT Sample Type Arterial; iSTAT Site R Radial; iSTAT Sodium 139 mmol/L (135-144); iSTAT SpO2 96
[2023-12-16 04:40] LABS: Basophils # (auto) 0.03 K/uL (0.00-0.20); Basophils % (auto) 0.4 %; Eosinophils # (auto) 0.05 K/uL (0.00-0.50); Eosinophils % (auto) 0.7 %; Hematocrit (blood only) 34.7 % (37.0-47.0); Hemoglobin 12.5 g/dl (12.0-16.0); Immature Granulocytes # (auto) 0.02 K/uL (0.01-0.20); Immature Granulocytes % (auto) 0.3 %; Lymphocytes # (auto) 2.26 K/uL (1.20-3.40); Lymphocytes % (auto) 30.9 %; Mean Corpuscular Hemoglobin 35.4 pg (25.0-34.0); Mean Corpuscular Volume 98.3 fL (80.0-100.0); Mean Platelet Volume 8.5 fL (9.4-12.4); Monocytes # (auto) 0.86 K/uL (0.11-0.59); Monocytes % (auto) 11.8 %; Neutrophils # (auto) 4.09 K/uL (1.40-6.50); Neutrophils % (auto) 55.9 %; Platelet Count 112 K/uL (130-400); RDW Coefficient of Variation 11.9 % (11.5-14.5); RDW Standard Deviation 41.4 fL (36.4-46.3); Red Blood Count 3.53 M/uL (4.20-5.40); White Blood Count 7.31 K/ul (4.8-10.8)
[2023-12-16 05:12] LABS: Albumin Level 3.9 gm/dl (3.4-5.0); BUN Creatinine Ratio 17.5 (10-20); Bilirubin Direct 0.1 mg/dl (0-0.2); Bilirubin,Total 0.5 mg/dl (0.2-1.0); Calcium 8.2 mg/dl (8.6-10.3); Creatinine Clr Calc Pharmacy 127.7 ml/min; Magnesium 1.9 mg/dl (1.7-2.4); Phosphorus 2.3 mg/dl (2.5-4.9); Potassium 3.4 mmol/L (3.5-5.1); Total Protein 6.4 gm/dl (6.0-8.3)
[2023-12-16] MEDS ORDERED: POTASSIUM PHOS 3 MMOL/1 ML INFUSION IV STA (05:51)
[2023-12-16] MEDS: MAGNESIUM SULFATE / D5W 1 GM/100 ML BAG IV ONE (05:58)
[2023-12-16] MEDS: POTASSIUM PHOSPHATE 21 MMOL in DEXTROSE 5% 500 ML IV ONE (06:26)
--- NOTE | 2023-12-16 07:20 | Critical Care Progress Note ---
Date of Service December 16, 2023 Assessment & Plan (1) Alcohol intoxication: Plan: Reason Critically Ill: 48-year-old female presents to the ICU following emergent intubation in the emergency department where she was found to be obtunded following alcohol ingestion and possibly drug ingestion earlier this afternoon. She remains mechanically ventilated for airway protection 24-hour events: Patient was intubated. This morning she looks good. She was extubated without difficulty and is hemodynamically stable. Neuro - Altered mental status due to acute alcohol intoxication. Appears resolved. Will place on oral thiamine and folate Cardiac - No history of cardiac disease. Currently normal sinus rhythm on monitor. EKG with normal QRS and QTc intervals. Continue monitor on telemetry for now Respiratory - Extubated without difficulty. Wean oxygen as tolerated. Out of bed to chair. Incentive spirometry. GI - Advance diet as tolerated RENAL/LYTES - Creatinine within normal limits. No electrolyte abnormalities. Monitor routine BMPs - Foleystrict I's and O's ENDO - No history of diabetes or thyroid disease. ICU hyperglycemic protocol HEME - H&H stable, monitor routine CBC ID - No indication for best process at this time LINES/IV ACCESS - Peripheral IVs DVT PROPHYLAXIS - SCDs Patient's critical care issues have resolved. She can transfer out of the ICU. Critical care will sign off. Feel free to contact us with questions or concerns (2) AMS (altered mental status): (3) Respiratory failure: Admission and Anticipated Discharge Date Admission Date: December 15, 2023 Subjective Patient seen and examined. EMR reviewed. Discussed with bedside critical care nurse as well as overnight critical care RHIANNON. The patient is awake and alert this morning on sedation. She follows commands. She is on minimal vent settings. Once extubated the patient states she has minimal recollection of the previous days events. She remembers getting lost and then calling her significant other and not to the last thing she recalls. She does not recall taking any illicit medications. She has no complaints this morning Review of Systems Review of Systems: All systems reviewed & are unremarkable except as noted in Subjective Physical Exam Constitutional: WD/WN, vitals as above Neck: trachea midline, no thyromegaly Respiratory: normal respiratory effort, lungs clear to auscultation Cardiovascular: RRR, no murmur, no edema Gastrointestinal (Abdomen): normal bowel sounds, soft, nontender, no hepatosplenomegaly Musculoskeletal: Extremities: extremities normal to inspection Skin: no rashes, warm and dry Neurologic: Nonfocal exam Lymphatic: no cervical lymphadenopathy Results & Data Results & Data Vital Signs (Past 12 Hours) Vital Signs Temp Pulse Pulse Resp BP BP BP 12/16/23 06:00 37.5 C 76 20 125/80 12/16/23 05:00 87 19 122/74 12/16/23 04:10 81 25 H 12/16/23 04:00 12/16/23 04:00 37.5 C 80 24 110/82 12/16/23 03:00 37.7 C H 76 26 H 127/84 12/16/23 02:15 37.5 C 74 25 H 12/16/23 02:00 113/72 12/16/23 02:00 122/78 12/16/23 01:57 EST 37.4 C 90 18 12/16/23 01:30 EST 114/75 12/16/23 01:30 EST 114/75 12/16/23 01:30 EST 114/75 12/16/23 01:30 EST 114/75 12/16/23 01:30 EST 114/75 12/16/23 01:30 EST 114/75 12/16/23 01:30 EST 114/75 12/16/23 01:30 EST 114/75 12/16/23 01:30 EST 114/75 12/16/23 01:30 EST 114/75 12/16/23 01:30 EST 114/75 12/16/23 01:30 EST 114/75 12/16/23 01:30 EST 114/75 12/16/23 01:30 EST 114/75 12/16/23 01:30 EST 114/75 12/16/23 01:30 EST 114/75 12/16/23 01:30 EST 37.2 C 94 H 22 12/16/23 01:03 EST 37.3 C 74 24 12/16/23 01:00 EST 116/78 12/16/23 01:00 EST 116/78 12/16/23 01:00 EST 116/78 12/16/23 01:00 EST 116/78 12/16/23 01:00 EST 116/78 12/16/23 01:00 EST 116/78 12/16/23 01:00 EST 116/78 12/16/23 01:00 EST 116/78 12/16/23 01:00 EST 116/78 12/16/23 01:00 EST 116/78 12/16/23 00:48 37.2 C 68 24 12/16/23 00:30 132/82 12/16/23 00:30 132/82 12/16/23 00:30 37.0 C 82 24 12/16/23 00:00 36.8 C 80 25 H 12/16/23 00:00 119/79 12/16/23 00:00 68 12/16/23 00:00 12/15/23 23:35 75 25 H 12/15/23 23:30 36.6 C 67 24 12/15/23 23:30 103/67 12/15/23 23:30 103/67 12/15/23 23:30 103/67 12/15/23 23:03 36.6 C 69 24 12/15/23 23:00 104/75 12/15/23 22:48 36.6 C 84 31 H 12/15/23 22:30 95/62 L 12/15/23 22:06 36.6 C 72 24 12/15/23 22:00 12/15/23 21:36 36.7 C 74 24 12/15/23 21:00 125/83 12/15/23 21:00 125/83 12/15/23 21:00 36.5 C 78 24 12/15/23 21:00 36.5 C 82 24 125/83 12/15/23 20:33 77 24 104/67 12/15/23 20:24 74 24 100/70 Pulse Ox O2 Del Method FiO2 12/16/23 06:00 95 Mechanical Vent 28 12/16/23 05:00 98 Mechanical Vent 28 12/16/23 04:10 96 28 12/16/23 04:00 30 12/16/23 04:00 96 Mechanical Vent 30 12/16/23 03:00 97 Mechanical Vent 30 12/16/23 02:15 99 12/16/23 02:00 12/16/23 02:00 12/16/23 01:57 EST 100 12/16/23 01:30 EST 12/16/23 01:30 EST 12/16/23 01:30 EST 12/16/23 01:30 EST 12/16/23 01:30 EST 12/16/23 01:30 EST 12/16/23 01:30 EST 12/16/23 01:30 EST 12/16/23 01:30 EST 12/16/23 01:30 EST 12/16/23 01:30 EST 12/16/23 01:30 EST 12/16/23 01:30 EST 12/16/23 01:30 EST 12/16/23 01:30 EST 12/16/23 01:30 EST 12/16/23 01:30 EST 100 12/16/23 01:03 EST 99 12/16/23 01:00 EST 12/16/23 01:00 EST 12/16/23 01:00 EST 12/16/23 01:00 EST 12/16/23 01:00 EST 12/16/23 01:00 EST 12/16/23 01:00 EST 12/16/23 01:00 EST 12/16/23 01:00 EST 12/16/23 01:00 EST 12/16/23 00:48 98 12/16/23 00:30 12/16/23 00:30 12/16/23 00:30 91 12/16/23 00:00 99 12/16/23 00:00 12/16/23 00:00 12/16/23 00:00 30 12/15/23 23:35 100 30 12/15/23 23:30 99 12/15/23 23:30 12/15/23 23:30 12/15/23 23:30 12/15/23 23:03 99 12/15/23 23:00 12/15/23 22:48 98 12/15/23 22:30 12/15/23 22:06 99 Mechanical Vent 30 12/15/23 22:00 30 12/15/23 21:36 98 Mechanical Vent 30 12/15/23 21:00 12/15/23 21:00 12/15/23 21:00 100 Mechanical Vent 30 12/15/23 21:00 100 Mechanical Vent 30 12/15/23 20:33 98 Mechanical Vent 30 12/15/23 20:24 98 Mechanical Vent 30 Critical Care Results & Data Vital Signs (Past 12 Hours) Vital Signs Temp Pulse Pulse Resp BP BP BP 12/16/23 06:00 37.5 C 76 20 125/80 12/16/23 05:00 87 19 122/74 12/16/23 04:10 81 25 H 12/16/23 04:00 12/16/23 04:00 37.5 C 80 24 110/82 12/16/23 03:00 37.7 C H 76 26 H 127/84 12/16/23 02:15 37.5 C 74 25 H 12/16/23 02:00 113/72 12/16/23 02:00 122/78 12/16/23 01:57 EST 37.4 C 90 18 12/16/23 01:30 EST 114/75 12/16/23 01:30 EST 114/75 12/16/23 01:30 EST 114/75 12/16/23 01:30 EST 114/75 12/16/23 01:30 EST 114/75 12/16/23 01:30 EST 114/75 12/16/23 01:30 EST 114/75 12/16/23 01:30 EST 114/75 12/16/23 01:30 EST 114/75 12/16/23 01:30 EST 114/75 12/16/23 01:30 EST 114/75 12/16/23 01:30 EST 114/75 12/16/23 01:30 EST 114/75 12/16/23 01:30 EST 114/75 12/16/23 01:30 EST 114/75 12/16/23 01:30 EST 114/75 12/16/23 01:30 EST 37.2 C 94 H 22 12/16/23 01:03 EST 37.3 C 74 24 12/16/23 01:00 EST 116/78 12/16/23 01:00 EST 116/78 12/16/23 01:00 EST 116/78 12/16/23 01:00 EST 116/78 12/16/23 01:00 EST 116/78 12/16/23 01:00 EST 116/78 12/16/23 01:00 EST 116/78 12/16/23 01:00 EST 116/78 12/16/23 01:00 EST 116/78 12/16/23 01:00 EST 116/78 12/16/23 00:48 37.2 C 68 24 12/16/23 00:30 132/82 12/16/23 00:30 132/82 12/16/23 00:30 37.0 C 82 24 12/16/23 00:00 36.8 C 80 25 H 12/16/23 00:00 119/79 12/16/23 00:00 68 12/16/23 00:00 12/15/23 23:35 75 25 H 12/15/23 23:30 36.6 C 67 24 12/15/23 23:30 103/67 12/15/23 23:30 103/67 12/15/23 23:30 103/67 12/15/23 23:03 36.6 C 69 24 12/15/23 23:00 104/75 12/15/23 22:48 36.6 C 84 31 H 12/15/23 22:30 95/62 L 12/15/23 22:06 36.6 C 72 24 12/15/23 22:00 12/15/23 21:36 36.7 C 74 24 12/15/23 21:00 125/83 12/15/23 21:00 125/83 12/15/23 21:00 36.5 C 78 24 12/15/23 21:00 36.5 C 82 24 125/83 12/15/23 20:33 77 24 104/67 12/15/23 20:24 74 24 100/70 Pulse Ox O2 Del Method FiO2 12/16/23 06:00 95 Mechanical Vent 12/16/23 05:00 98 Mechanical Vent 12/16/23 04:10 96 28 12/16/23 04:00 30 12/16/23 04:00 96 Mechanical Vent 30 12/16/23 03:00 97 Mechanical Vent 30 12/16/23 02:15 99 12/16/23 02:00 12/16/23 02:00 12/16/23 01:57 EST 100 12/16/23 01:30 EST 12/16/23 01:30 EST 12/16/23 01:30 EST 12/16/23 01:30 EST 12/16/23 01:30 EST 12/16/23 01:30 EST 12/16/23 01:30 EST 12/16/23 01:30 EST 12/16/23 01:30 EST 12/16/23 01:30 EST 12/16/23 01:30 EST 12/16/23 01:30 EST 12/16/23 01:30 EST 12/16/23 01:30 EST 12/16/23 01:30 EST 12/16/23 01:30 EST 12/16/23 01:30 EST 100 12/16/23 01:03 EST 99 12/16/23 01:00 EST 12/16/23 01:00 EST 12/16/23 01:00 EST 12/16/23 01:00 EST 12/16/23 01:00 EST 12/16/23 01:00 EST 12/16/23 01:00 EST 12/16/23 01:00 EST 12/16/23 01:00 EST 12/16/23 01:00 EST 12/16/23 00:48 98 12/16/23 00:30 12/16/23 00:30 12/16/23 00:30 91 12/16/23 00:00 99 12/16/23 00:00 12/16/23 00:00 12/16/23 00:00 30 12/15/23 23:35 100 30 12/15/23 23:30 99 12/15/23 23:30 12/15/23 23:30 12/15/23 23:30 12/15/23 23:03 99 12/15/23 23:00 12/15/23 22:48 98 12/15/23 22:30 12/15/23 22:06 99 Mechanical Vent 30 12/15/23 22:00 30 12/15/23 21:36 98 Mechanical Vent 30 12/15/23 21:00 12/15/23 21:00 12/15/23 21:00 100 Mechanical Vent 30 12/15/23 21:00 100 Mechanical Vent 30 12/15/23 20:33 98 Mechanical Vent 30 12/15/23 20:24 98 Mechanical Vent 30 Lab & Micro Results (Past 24 Hours) RBC 3.53 M/uL (4.20-5.40) L 12/16/23 WBC 7.31 K/ul (4.8-10.8) 12/16/23 Hgb 12.5 g/dl (12.0-16.0) 12/16/23 Hct 34.7 % (37.0-47.0) L 12/16/23 MCV 98.3 fL (80.0-100.0) 12/16/23 MCH 35.4 pg (25.0-34.0) H 12/16/23 MCHC 36.0 g/dL (32.0-36.0) 12/16/23 RDW Standard Deviation 41.4 fL (36.4-46.3) 12/16/23 RDW Coefficient of Variation 11.9 % (11.5-14.5) 12/16/23 Plt Count 112 K/uL (130-400) L 12/16/23 MPV 8.5 fL (9.4-12.4) L 12/16/23 Neutrophils (%) (Auto) 55.9 % 12/16/23 Lymphocytes (%) (Auto) 30.9 % 12/16/23 Monocytes # (Auto) 0.86 K/uL (0.11-0.59) H 12/16/23 Eosinophils # (Auto) 0.05 K/uL (0.00-0.50) 12/16/23 Immature Granulocyte % (Auto) 0.3 % 12/16/23 Neutrophils # (Auto) 4.09 K/uL (1.40-6.50) 12/16/23 Lymphocytes # (Auto) 2.26 K/uL (1.20-3.40) 12/16/23 Monocytes # (Auto) 0.86 K/uL (0.11-0.59) H 12/16/23 Eosinophils # (Auto) 0.05 K/uL (0.00-0.50) 12/16/23 Basophils # (Auto) 0.03 K/uL (0.00-0.20) 12/16/23 Immature Granulocyte # (Auto) 0.02 K/uL (0.01-0.20) 4 Na 141 mmol/L (136-145) 12/16/23 K 3.4 mmol/L (3.5-5.1) L 12/16/23 Cl 107 mmol/L (98-107) 12/16/23 CO2 24 mmol/L (21-32) 12/16/23 Anion Gap 10 (3-11) 12/16/23 BUN 10 mg/dl (6-23) 12/16/23 Creatinine 0.57 mg/dl (0.6-1.2) L 12/16/23 BUN/Creatinine Ratio 17.5 (10-20) 12/16/23 Glu 83 mg/dl (70-99(Fasting)) 12/16/23 Ca 8.2 mg/dl (8.6-10.3) L 12/16/23 Phosphorus Level 2.3 mg/dl (2.5-4.9) L 12/16/23 Total Bilirubin 0.5 mg/dl (0.2-1.0) 12/16/23 Direct Bilirubin 0.1 mg/dl (0-0.2) 12/16/23 AST 22 U/L (13-39) 12/16/23 ALT 24 U/L (7-52) 12/16/23 Alkaline Phosphatase 24 U/L (34-104) L 12/16/23 TP 6.4 gm/dl (6.0-8.3) 12/16/23 Albumin 3.9 gm/dl (3.4-5.0) 12/16/23 Globulin 3.4 gm/dl (2.5-4.0) 12/15/23 Albumin/Globulin Ratio 1.4 (0.9-2) 12/15/23 Mg 1.9 mg/dl (1.7-2.4) 12/16/23 04:23 Calcium Level 8.2 mg/dl (8.6-10.3) L 12/16/23 04:23 Prothromb Time International Ratio 0.9 (0.9-1.1) 12/15/23 16:3 0 Robb Test Pass 12/16/23 04:14 Diagnostic Findings (Past 24 Hours) Chest X-Ray 12/15/23 16:37 Chest radiograph, one view History: Chest pain Comparison: None Findings: Single AP view of the chest performed. No focal consolidation or pleural effusion. No pneumothorax. Endotracheal tube tip is approximately 2.8 cm above the nani. The cardiomediastinal silhouette is within normal limits. Normal pulmonary vascularity. No evidence for lymphadenopathy. No visualized bony or soft tissue abnormality. Impression: ET tube as above Electronically signed by Pio Alfaro 12-15-2023 7:[address] 12/15/23 16:38 EXAM: CT Head Without Intravenous Contrast INDICATION: Altered mental status. TECHNIQUE: Axial computed tomography images of the head/brain without intravenous contrast. Sagittal and/or coronal reformats are provided. Sagittal and coronal reformatted images were created and reviewed. This CT exam was performed using one or more of the following dose reduction techniques: automated exposure control, adjustment of the mA and/or kV according to patient size, and/or use of iterative reconstruction technique. COMPARISON: No relevant prior studies available. FINDINGS: Limitations: None. Brain and extra-axial spaces: No abnormality noted. No hemorrhage. No significant white matter disease. No edema. No ventriculomegaly. Bones/joints: No acute changes. Soft tissues: No significant abnormality noted. Vasculature: No acute abnormality noted. Sinuses: No layering fluid in the visualized portions of the paranasal sinuses. Mastoid air cells: No mastoid effusion. Orbits: No significant abnormality noted. IMPRESSION: No abnormality noted. ACT 112: Negative or not required by law. Electronically signed by Kae Gallegos 12-15-2023 6:37 PM I & O Totals 24 Hours 12/15/23 12/16/23 12/17/23 07:59 06:59 06:59 Intake Total Output Total Balance Cumulative 12/15/23 16:21 thru 12/16/23 06:24 Intake Total 2261.001 Output Total 1530 Balance 731.001 RT Ventilator Mngmt (Last Documented) Ventilator Ordered Settings Ventilator Support Mode Assist Control 12/16/23 04:10 Respiratory Rate 20 12/16/23 06:00 Ventilator Tidal Volume 350 12/16/23 04:10 Setting Minute Ventilation 8.6 12/16/23 04:10 Positive End Expiratory 5 12/16/23 04:10 Pressure Fraction of Inspired Oxygen 28 12/16/23 06:00 Ventilator - PT Measurements Respiratory Rate 20 Exhaled Tidal Volume 350 Minute Ventilation 8.6 Peak Inspiratory Airway 15 Pressure Plateau Pressure 11 Respiratory Cycle Inspiratory: 1:2.6 Expiratory Ratio Inspiratory Phase Time 0.7 End-Tidal CO2 30 Static Lung Compliance 58.33 Dynamic Lung Compliance 35.00 Normal Static Lung Compliance 48.00 Patient Measurements Comment RR decreased to 20 [facility] Coding Level of Care Code 48234 SUB INP/OBS CARE 3/50MIN Diagnoses Alcohol intoxication F10.929 Complication of substance-induced condition: with unspecified complication AMS (altered mental status) R40.1 Altered mental status type: stupor Respiratory failure J96.00 Chronicity: acute Respiratory failure complication: unspecified whether with hypoxia or hypercapnia (1) Alcohol intoxication Complication of substance-induced condition: with unspecified complication Qualified Code(s): F10.929 - Alcohol use, unspecified with intoxication, unspec ified (2) AMS (altered mental status) Altered mental status type: stupor Qualified Code(s): R40.1 - Stupor (3) Respiratory failure Chronicity: acute Respiratory failure complication: unspecified whether with hypoxia or hypercapnia Qualified Code(s): J96.00 - Acute respiratory failure, unspecified whether with hypoxia or hypercapnia
[2023-12-16] MEDS ORDERED: Nursing to Pharmacy Communication SCH (07:30)
[2023-12-16] MEDS: THIAMINE HCL 100 MG TAB PO SCH (09:06)
[2023-12-16] MEDS: FOLIC ACID 1 MG TAB PO SCH (09:06)
--- NOTE | 2023-12-16 10:44 | XRay Report ---
XR chest 1V portable HISTORY: 48 years-old Female Resp failure acute respiratory failure COMPARISON: 12/15/2023 TECHNIQUE: AP view of the chest FINDINGS: Endotracheal tube overlies the midline, 4 cm superior to the nani. Heart size is normal. The lungs appear generally clear. A pneumothorax, pleural effusion or airspace consolidation. Probable breast b iopsy clip noted on the left. Bones appear grossly intact. IMPRESSION: 1. Endotracheal tube placement as above. 2. The lungs appear clear. ACT 112: Negative or not required by law. The above report was generated using voice recognition software. It may contain grammatical, syntax o r spelling errors. Electronically signed by: Oscar Dietz M.D. 12/16/2023 10:42 AM
--- NOTE | 2023-12-16 12:04 | Hospitalist Progress Note ---
Date of Service December 16, 2023 Assessment & Plan (1) AMS (altered mental status): (2) Respiratory failure: (3) Alcohol intoxication: Plan: 48-year-old female with no known past medical history, presenting with altered mental status, following an unknown substance ingestion. She is being managed for the following: Altered mental status, respiratory failure Alcohol ingestion Other unknown substance ingestion CT head: No acute process Urine drug screen: Unremarkable Alcohol level: 300s LFTs: Normal Admitting EKG: QT corrected 480s, QRS 76. Latest EKG w/ QTc of 482 and QRS of 88. Intubated at the ER for airway protection in the setting of altered mental status, unarousable, bradypnea. s/p extubation 12/15 at 7:10 AM, per ICU attending pt stable for downgrade out of ICU. Poison Control Center was contacted, recommends repeating EKG to ensure downtrending QTc, and repleting electrolytes. Comprehensive UDS was also sent out at admission, pending. Labs and EKG in AM, c/w tele monitoring. Continue supportive care for now Encourage for pO intake, if poor po intake will need IVf. H/o anxiety/hot flashes: on venlafaxine, will hold for now given it has propensity to cause QTc prolongation. DVT prophylaxis: SCDs, ambulation. CODE STATUS: Full code Disposition: Lives with significant other at home, [facility]. Possible dc in next 1-2 days. Admission and Anticipated Discharge Date Admission Date: December 15, 2023 Subjective Patient was seen and examined at bedside. Patient was extubated in the morning at around 7:10 AM, was lying in bed, on 2 L oxygen via nasal, NAD. Patient reports some sore throat likely from intubation. Patient denies any fever/cough/pain or burning with passing urine/flulike illness/abdominal pain/diarrhea in the recent past. Patient does not feel hunger . Patient encouraged for p.o. intake. Patient states that she has minimal recollection of yesterday's events and does not remember taking any illicit medication. Patient denied chest pain. Physical Exam Physical Exam: GENERAL: Alert and oriented x3. NAD, on 2L NC O2. HEENT: No pallor, no icterus. Pupils equal, round and reactive to light. Oral mucosa moist. NECK: No JVD, no neck masses. HEART: S1 and S2 heard. Regular rate and rhythm. No murmur, no gallop. RESPIRATORY SYSTEM: Normal AP diameter. No accessory muscle use. No wheezing, no crackles. ABDOMEN: Soft, bowel sounds present, nontender, no distention. CENTRAL NERVOUS SYSTEM: No facial droop. Speech is clear. Obeys simple commands. Moves extremities. EXTREMITIES: No edema, no erythema seen. Results & Data Results & Data Vital Signs (Past 12 Hours) Vital Signs Temp Pulse Pulse Resp BP BP Pulse Ox 12/16/23 11:00 37.6 C H 75 16 127/79 94 12/16/23 10:00 37.7 C H 77 18 126/84 98 12/16/23 09:00 37.8 C H 91 H 17 130/81 97 12/16/23 08:30 37.9 C H 83 17 137/84 97 12/16/23 07:30 12/16/23 07:30 37.9 C H 81 19 142/89 H 95 12/16/23 07:00 37.9 C H 92 H 20 142/99 H 98 12/16/23 07:00 12/16/23 06:00 37.5 C 76 20 125/80 95 12/16/23 05:00 87 19 122/74 98 12/16/23 04:10 81 25 H 96 12/16/23 04:00 12/16/23 04:00 37.5 C 80 24 110/82 96 12/16/23 03:00 37.7 C H 76 26 H 127/84 97 12/16/23 02:15 37.5 C 74 25 H 99 12/16/23 02:00 113/72 12/16/23 02:00 122/78 12/16/23 01:57 EST 37.4 C 90 18 100 12/16/23 01:30 EST 114/75 12/16/23 01:30 EST 114/75 12/16/23 01:30 EST 114/75 12/16/23 01:30 EST 114/75 12/16/23 01:30 EST 114/75 12/16/23 01:30 EST 114/75 12/16/23 01:30 EST 114/75 12/16/23 01:30 EST 114/75 12/16/23 01:30 EST 114/75 12/16/23 01:30 EST 114/75 12/16/23 01:30 EST 114/75 12/16/23 01:30 EST 114/75 12/16/23 01:30 EST 114/75 12/16/23 01:30 EST 114/75 12/16/23 01:30 EST 114/75 12/16/23 01:30 EST 114/75 12/16/23 01:30 EST 37.2 C 94 H 22 100 12/16/23 01:03 EST 37.3 C 74 24 99 12/16/23 01:00 EST 116/78 12/16/23 01:00 EST 116/78 12/16/23 01:00 EST 116/78 12/16/23 01:00 EST 116/78 12/16/23 01:00 EST 116/78 12/16/23 01:00 EST 116/78 12/16/23 01:00 EST 116/78 12/16/23 01:00 EST 116/78 12/16/23 01:00 EST 116/78 12/16/23 01:00 EST 116/78 O2 Del Method O2 Flow Rate FiO2 12/16/23 11:00 Room Air 12/16/23 10:00 Nasal Cannula 2 12/16/23 09:00 Nasal Cannula 2 12/16/23 08:30 Nasal Cannula 2 12/16/23 07:30 Nasal Cannula 2 12/16/23 07:30 Nasal Cannula 2 12/16/23 07:00 Mechanical Vent 28 12/16/23 07:00 28 12/16/23 06:00 Mechanical Vent 28 12/16/23 05:00 Mechanical Vent 28 12/16/23 04:10 28 12/16/23 04:00 30 12/16/23 04:00 Mechanical Vent 30 12/16/23 03:00 Mechanical Vent 30 12/16/23 02:15 12/16/23 02:00 12/16/23 02:00 12/16/23 01:57 EST 12/16/23 01:30 EST 12/16/23 01:30 EST 12/16/23 01:30 EST 12/16/23 01:30 EST 12/16/23 01:30 EST 12/16/23 01:30 EST 12/16/23 01:30 EST 12/16/23 01:30 EST 12/16/23 01:30 EST 12/16/23 01:30 EST 12/16/23 01:30 EST 12/16/23 01:30 EST 12/16/23 01:30 EST 12/16/23 01:30 EST 12/16/23 01:30 EST 12/16/23 01:30 EST 12/16/23 01:30 EST 12/16/23 01:03 EST 12/16/23 01:00 EST 12/16/23 01:00 EST 12/16/23 01:00 EST 12/16/23 01:00 EST 12/16/23 01:00 EST 12/16/23 01:00 EST 12/16/23 01:00 EST 12/16/23 01:00 EST 12/16/23 01:00 EST 12/16/23 01:00 EST (1) AMS (altered mental status) Altered mental status type: stupor Qualified Code(s): R40.1 - Stupor (2) Respiratory failure Chronicity: acute Respiratory failure complication: unspecified whether with hypoxia or hypercapnia Qualified Code(s): J96.00 - Acute respiratory failure, unspecified whether with hypoxia or hypercapnia (3) Alcohol intoxication Complication of substance-induced condition: with unspecified complication Qualified Code(s): F10.929 - Alcohol use, unspecified with intoxication, unspecified
[2023-12-16] MEDS: POTASSIUM CHLORIDE CRTAB 20 MEQ TABCR PO STA (12:14)
[2023-12-16] MEDS: INFLUENZA VACC TS2024-25(6m+)/PF (IIV3) 0.5mL Syr IM ONE (12:17)
--- NOTE | 2023-12-16 17:29 | Electrocardiogram Report ---
Test Reason : Blood Pressure : */* mmHG Vent. Rate : 110 BPM Atrial Rate : 110 BPM P-R Int : 152 ms QRS Dur : 76 ms QT Int : 356 ms P-R-T Axes : 70 81 57 degrees QTcB Int : 481 ms Sinus tachycardia Possible Left atrial enlargement Minimal voltage criteria for LVH, may be normal variant ( Sokolow-Flores ) Nonspecific ST and T wave abnormality Abnormal ECG No previous ECGs available Confirmed by Chichi Chase (Nasir) on 12/16/2023 5:29:05 PM Referred By: Confirmed By: Chichi Chase
--- NOTE | 2023-12-16 17:33 | Electrocardiogram Report ---
Test Reason : Blood Pressure : */* mmHG Vent. Rate : 71 BPM Atrial Rate : 71 BPM P-R Int : 140 ms QRS Dur : 88 ms QT Int : 444 ms P-R-T Axes : 71 79 75 degrees QTcB Int : 482 ms Normal sinus rhythm Prolonged QT Abnormal ECG When compared with ECG of 15-Dec-2023 16:31, (unconfirmed) Vent. rate has decreased by 39 bpm Non-specific change in ST segment in Inferior leads ST no longer depressed in Anterolateral leads Confirmed by Chichi Chase (Nasir) on 12/16/2023 5:33:19 PM Referred By: JUDIE PCP Confirmed By: Chichi Chase
--- NOTE | 2023-12-16 17:36 | Electrocardiogram Report ---
Test Reason : Blood Pressure : */* mmHG Vent. Rate : 82 BPM Atrial Rate : 82 BPM P-R Int : 138 ms QRS Dur : 86 ms QT Int : 444 ms P-R-T Axes : 64 76 77 degrees QTcB Int : 518 ms Normal sinus rhythm Prolonged QT Abnormal ECG When compared with ECG of 15-Dec-2023 23:34, (unconfirmed) No significant change was found Confirmed by Chichi Chase ([id number]) on 12/16/2023 5:36:02 PM Referred By: NO PCP Confirmed By: Chichi Chase
--- NOTE | 2023-12-16 17:42 | Electrocardiogram Report ---
Test Reason : Blood Pressure : */* mmHG Vent. Rate : 78 BPM Atrial Rate : 78 BPM P-R Int : 142 ms QRS Dur : 84 ms QT Int : 424 ms P-R-T Axes : 65 74 74 degrees QTcB Int : 483 ms Normal sinus rhythm Prolonged QT Abnormal ECG When compared with ECG of 16-Dec-2023 04:38, (unconfirmed) No significant change was found Confirmed by Chichi Chase (Nasir) on 12/16/2023 5:42:28 PM Referred By: NO PCP Confirmed By: Chichi Chase
[2023-12-17 04:20] LABS: Albumin Globulin Ratio 1.3 (0.9-2); Albumin Level 3.9 gm/dl (3.4-5.0); BUN Creatinine Ratio 19.6 (10-20); Bilirubin,Total 1.1 mg/dl (0.2-1.0); Calcium 8.6 mg/dl (8.6-10.3); Globulin 2.9 gm/dl (2.5-4.0); Magnesium 2.3 mg/dl (1.7-2.4); Phosphorus 2.6 mg/dl (2.5-4.9); Potassium 3.9 mmol/L (3.5-5.1); Total Protein 6.8 gm/dl (6.0-8.3)
[2023-12-17 04:40] LABS: Hematocrit (blood only) 38.3 % (37.0-47.0); Hemoglobin 13.1 g/dl (12.0-16.0); Mean Corpuscular Hemoglobin 33.7 pg (25.0-34.0); Mean Corpuscular Hgb Conc 34.2 g/dL (32.0-36.0); Mean Corpuscular Volume 98.5 fL (80.0-100.0); Mean Platelet Volume 9.2 fL (9.4-12.4); Platelet Count 125 K/uL (130-400); RDW Coefficient of Variation 11.9 % (11.5-14.5); RDW Standard Deviation 42.9 fL (36.4-46.3); Red Blood Count 3.89 M/uL (4.20-5.40); White Blood Count 5.97 K/ul (4.8-10.8)
[2023-12-17 09:30] VITALS: TEMP 98.6
[2023-12-17 09:31] VITALS: BP 143/90; RESP 20; O2SAT 98
--- NOTE | 2023-12-17 10:55 | Discharge Summary ---
Date of Service December 17, 2023 Admission HPI Per Admitting Provider History obtained from patient's significant other, David, at the bedside, as patient was sedated, intubated. According to David, patient at baseline is healthy, exercises frequently, does not have significant past medical history, and only takes a medication for hot flashes/anxiety. He said patient has been healthy for the past few days, no symptoms at all. They traveled from their home in [place] to [place] today for the football game. Coming into the game, patient was at her baseline, awake, alert, with no symptoms. They were having 2 to 3 cans of beer according to her significant other. During half time, the patient went to the bathroom, and upon returning, patient's partner noticed that she is significantly different-confused, weak, appears " severely drunk". Apparently, she reported to him that somebody in the bathroom gave her something to ingest, " which would make her happy". At the end of the game, patient became progressively confused, weak, to the point that she could not ambulate. Her partner had to assist her to exit the stadium. While walking, patient's significant other was able to seek help from the ambulance crew. When she was brought inside the ambulance, the patient was completely out of it as per her significant other. At the ER, patient's BP 123/93, heart rate 138, respiratory rate 6, 100% on Ambu bag. She was unarousable. Patient immediately intubated for airway protection. EKG showing sinus tachycardia 110 Urine drug screen negative, alcohol level 300s CT head: No acute process Chest x-ray: No acute process On exam, patient seen sedated on propofol, not in distress, no accessory muscle use. Admission Exam Per Admitting Provider General- Sedated, intubated, no Accessory muscle use Head- atraumatic Eyes- PERRL, EOMI, anicteric ENT- oropharynx clear Neck- supple, no JVD, no adenopathy, no thyromegaly; carotids +2/2, no bruits appreciated Lungs- clear to auscultation bilaterally, no rales/wheezes Heart- normal rate, regular rhythm; no murmur, no gallop, no rub appreciated Abdomen- normal bowel sounds, nondistended, soft, nontender, no masses or hepatosplenomegaly Extremities- no pretibial edema, no calf tenderness; peripheral pulses intact Neuro- sedated, intubated Skin- warm & dry Principal Diagnosis Altered mental status, respiratory failure Alcohol ingestion Other unknown substance ingestion Discharge Exam GENERAL: Alert and oriented x3. NAD, on RA. HEENT: No pallor, no icterus. Pupils equal, round and reactive to light. Oral mucosa moist. NECK: No JVD, no neck masses. HEART: S1 and S2 heard. Regular rate and rhythm. No murmur, no gallop. RESPIRATORY SYSTEM: Normal AP diameter. No accessory muscle use. No wheezing, no crackles. ABDOMEN: Soft, bowel sounds present, nontender, no distention. CENTRAL NERVOUS SYSTEM: No facial droop. Speech is clear. Obeys simple commands. Moves extremities. EXTREMITIES: No edema, no erythema seen. Discharge Data Allergies Allergy/AdvReac Type Severity Reaction Status Date / Time No Known Allergies Allergy Unverified 12/15/23 18:06 Consultations 12/15/23 19:09 ED Decision to Admit Stat 12/15/23 21:05 Consult Employment Instructional Associate Routine Ordered Studies 12/15/23 16:38 CT head/brain wo con Stat Hospital Course (1) AMS (altered mental status): (2) Respiratory failure: (3) Alcohol intoxication: 48-year-old female with no known past medical history, presenting with altered mental status, following an unknown substance ingestion. She was managed for the following: Altered mental status, respiratory failure Alcohol ingestion Other unknown substance ingestion CT head: No acute process Urine drug screen: Unremarkable Alcohol level: 300s LFTs: Normal Admitting EKG: QT corrected 480s, QRS 76. Latest EKG w/ QTc of 482 and QRS of 88. Intubated at the ER for airway protection in the setting of altered mental status, unarousable, bradypnea. s/p extubation 12/15 at 7:10 AM. Poison Control Center was involved, followed the patient, no more recs. Comprehensive UDS was also sent out at admission, pending. QTc stable/downtrending. Pt feels significantly better, back to her baseline and eating/moving bowels ok. H/o anxiety/hot flashes: on venlafaxine, will hold for now given it has propensity to cause QTc prolongation. can resume in next 2-3 days, d/w patient. DVT prophylaxis: SCDs, ambulation. CODE STATUS: Full code patient is being discharged to home with following instruction at the point of discharge: Follow-up with your primary care physician within a week time and likely you will need labs CBC/CMP/magnesium/phosphorus/EKG for QTc monitoring. Comprehensive Urine drug screen was sent out which is still pending at the time of discharge, coordinate with your pcp office to follow up on this test in about 5-7 days. Home Health Attestation I certify that this patient is under my care and that I, or a physicians res habilitation assistant working with me, had a face to-face encounter that meets the home health [id number] encounter requirements with this patient. The encounter with the patient was in whole, or in part, for the following medical condition, which is the primary reason for home health care (list m edical condition): I certify that, based on my findings, the following services are medically necessary home health services: My clinical findings support the need for the above services because: Further, I certify that my clinical findings support that this patient is homebound (i.e. absences from home require considerable and taxing effort and are for medical reasons or denominational services or infrequently or of short duration when for other reasons) because: Certification for Home Health Services: Based on the above findings, I certify that this patient is confined to the home and needs intermittent snf care, physical therapy and/or speech t herapy or continues to need occupational therapy. The patient is under my care, and I have initiated the establishment of the plan of care. This patient will be followed by a physician who will periodically review the plan of care. Total Time Total Time Spent Total Time Spent (In Minutes): 35 Discharge Plan Discharge Items Patient Disposition: Home - Self-Care Reason For Visit: SUBSTANCE INGESTION, ALTERED MENTAL STATUS Discharge Diagnosis: Altered mental status, respiratory failure Alcohol ingestion Other unknown substance ingestion Activity: Resume your previous activity Non-emergency contact: Primary Care Provider Call non-emergency contact if: you have any medication questions, your symptoms worsen and your temperature is above 101 Follow-up/Referrals: PCP,NO [Primary Care Provider] - Diet: Regular Addtl Attending Provider Instructions: Follow-up with your primary care physician within a week time and likely you will need labs CBC/CMP/magnesium/phosphorus/EKG for QTc monitoring. Comprehensive Urine drug screen was sent out which is still pending at the time of discharge, coordinate with your pcp office to follow up on this test in about 5-7 days. Pending Studies at Discharge: No Stand-Alone Forms: My [facility], Smoking Cessation Medications and DC Order Prescriptions: New folic acid 1 mg Tablet 1 mg PO QAM Qty: 30 0RF thiamine HCl (vitamin B1) 100 mg Tablet 100 mg PO QAM Qty: 30 0RF Held venlafaxine 37.5 mg Tablet 37.5 mg PO DAILY Hold Instructions: Resume on 12/19/23. Discharge Orders: Discharge Order (Routine); Ordered 12/17/23 Ordered By: Magdiel Molina Admission Data Admit Date/Time: 12/15/23 20:01 Attending Provider: Magdiel Molina Admit Provider: Brenden Silva Primary Care Provider: PCP,NO Other Providers: Brenden Silva; Terry Lin
[2023-12-17 11:40] VITALS: PULSE 72
--- NOTE | 2023-12-17 15:05 | Electrocardiogram Report ---
Test Reason : Blood Pressure : */* mmHG Vent. Rate : 74 BPM Atrial Rate : 74 BPM P-R Int : 138 ms QRS Dur : 86 ms QT Int : 428 ms P-R-T Axes : 67 77 74 degrees QTcB Int : 475 ms Normal sinus rhythm Normal ECG When compared with ECG of 16-Dec-2023 14:04, No significant change was found Confirmed by Bartolo Khan ([id number]) on 12/17/2023 3:04:47 PM Referred By: NO PCP Confirmed By: Bartolo Khan
== END 2023-12-17 11:55 | disposition home or self-care (01) | DRG 917 ==
LOC: ED 16:25 → SUATTDRO 20:01 → 1E 20:01